=== PATIENT | female | born 1995 | race Caucasian/White ===

== ENCOUNTER 2018-10-22 19:13 | Emergency (ER) | payer MEDICAID ==
[~2018-10-22] VITALS: Ht 170.2 cm; Wt 56.1 kg
[2018-10-22 19:15] VITALS: BP 116/68
[2018-10-22] MEDS ORDERED: DIPH,PERTUSS(ACELL),TET VAC/PF 0.5 ML IM-VACC ONE (19:30)
--- NOTE | 2018-10-22 19:33 | NUR ---
TDAP ADMIN. PATIENT INITALLY REFUSED X-RAY BECAUSE SHE IS CONCERNED ABOUT COST
== END 2018-10-22 21:34 | disposition home or self-care (01) ==
LOC: ED 20:05
DX: S91.331A Puncture wound without foreign body, right foot, initial encounter (principal); S91.332A Puncture wound without foreign body, left foot, initial encounter; W22.8XXA Striking against or struck by other objects, initial encounter; Y93.89 Activity, other specified; Y92.89 Other specified places as the place of occurrence of the external cause; Y99.8 Other external cause status
CPT/HCPCS: 90471; 90715

== ENCOUNTER 2018-12-01 17:45 | Emergency (ER) | payer MEDICAID ==
[~2018-12-01] VITALS: Ht 170.2 cm; Wt 58.0 kg
[2018-12-01] MEDS ORDERED: ONDANSETRON 2MG/ML, 2ML IVPush PRN (18:00)
[2018-12-01] MEDS ORDERED: MORPHINE SULFATE 4 MG/ML, 1ML IVPush ONE (18:00)
[2018-12-01] MEDS ORDERED: ONDANSETRON ODT 4 MG ONE (18:40)
[2018-12-01] MEDS ORDERED: MORPHINE SULFATE 4 MG/ML, 1ML ONE (18:40)
--- NOTE | 2018-12-01 18:47 | NUR ---
PT BACK FROM XRAY, REFUSES IV. ERP NOTIFIED, MORPHINE GIVEN IM AND ZOFRAN ODT. BOYFRIEND AT , CALL LIGHT WITHIN REACH.
[2018-12-01] MEDS ORDERED: LIDOCAINE 1%-EPI 1:100K, 20ML ONE (19:24)
[2018-12-01] MEDS ORDERED: DIPH,PERTUSS(ACELL),TET VAC/PF 0.5 ML IM-VACC ONE (19:30)
[2018-12-01] MEDS ORDERED: LIDOCAINE 1%-EPI 1:100K, 20ML SQ ONE (19:30)
--- NOTE | 2018-12-01 19:35 | NUR ---
PER PT AND BOYFRIEND, EPISODE OF SYNCOPE. PT A/O TO NORM SINCE ARRIVAL TO ED. PT'S BEHAVIOR CONTINUES TO BE INNAPPROPRIATE AND ERRATIC WITH EPISODES OF CRYING AND YELLING OUT.
[2018-12-01 19:40] VITALS: BP 134/77
--- NOTE | 2018-12-01 19:40 | NUR ---
" I SMOKED SOME METH TONIGHT, I DID'T MEAN TOO, IT WAS JUST THERE AND I HAVE BEEN CLEAN ". PT FULLY MONITORED. VS Q 15 M. BP 131/77 HR 94 SINUS.
[2018-12-01] MEDS ORDERED: NEOSPORIN OINT. PKT 1 PACKET ONE ×2 (20:01→20:32)
== END 2018-12-01 21:20 | disposition home or self-care (01) ==
LOC: ED 19:21
DX: S82.52XA Displaced fracture of medial malleolus of left tibia, initial encounter for closed fracture (principal); S50.311A Abrasion of right elbow, initial encounter; S50.312A Abrasion of left elbow, initial encounter; S60.511A Abrasion of right hand, initial encounter; S60.512A Abrasion of left hand, initial encounter; S80.211A Abrasion, right knee, initial encounter; S80.212A Abrasion, left knee, initial encounter; Z72.9 Problem related to lifestyle, unspecified; F17.200 Nicotine dependence, unspecified, uncomplicated; F15.10 Other stimulant abuse, uncomplicated; V00.131A Fall from skateboard, initial encounter; Y93.89 Activity, other specified; Y92.410 Unspecified street and highway as the place of occurrence of the external cause; Y99.8 Other external cause status
CPT/HCPCS: 12031; 29125; 73070; 73110; 73130; 73564; 73610; 93005; 96374; 96375; 99284; J2270; J2405; 96372; 99283

== ENCOUNTER 2018-12-02 04:28 | Emergency (ER) | payer MEDICAID ==
[~2018-12-02] VITALS: Ht 170.2 cm; Wt 52.0 kg
[2018-12-02 04:29] VITALS: BP 94/66
[2018-12-02] MEDS ORDERED: OXYcodone/APAP 5/325MG TABLET ONE (04:57)
[2018-12-02] MEDS ORDERED: OXYcodone/APAP 5/325MG TABLET PO ONE (05:00)
[2018-12-02] MEDS ORDERED: LORazepam 1MG TABLET ONE (05:15)
[2018-12-02] MEDS ORDERED: LORazepam 1MG TABLET PO ONE (05:30)
== END 2018-12-02 05:49 | disposition home or self-care (01) ==
LOC: ED 04:57
DX: S82.54XA Nondisplaced fracture of medial malleolus of right tibia, initial encounter for closed fracture (principal); Z72.9 Problem related to lifestyle, unspecified; W18.30XA Fall on same level, unspecified, initial encounter; Y93.89 Activity, other specified; Y92.89 Other specified places as the place of occurrence of the external cause; Y99.8 Other external cause status
CPT/HCPCS: 29515; 99283

== ENCOUNTER 2019-10-18 15:49 | Emergency (ER) | payer MEDICAID ==
[~2019-10-18] VITALS: Ht 172.7 cm; Wt 51.5 kg
[2019-10-18 16:06] VITALS: BP 118/58
--- NOTE | 2019-10-18 16:12 | NUR ---
PIE FILLER: PT PROVIDED W/ URINE CUP FOR SAMPLE.
--- NOTE | 2019-10-18 16:17 | NUR ---
MECHANICAL ARTIST: PT TO RAD.
[2019-10-18 17:08] LABS: MICROSCOPIC AUTO
--- NOTE | 2019-10-18 17:20 | NUR ---
CALLED FOR PT. PT NOT IN LOBBY.
--- NOTE | 2019-10-18 18:15 | NUR ---
SATURATOR TENDER: CALLED FOR PT. PT NOT IN LOBBY AT THIS TIME.
--- NOTE | 2019-10-18 18:32 | NUR ---
CALLED FOR PT. PT NOT IN LOBBY. NOT IN RESTROOMS. PT DID NOT NOTIFY ANYONE PRIOR TO LEAVING.
== END 2019-10-18 18:34 | disposition left against medical advice (07) ==
LOC: ED 16:09
DX: S91.332A Puncture wound without foreign body, left foot, initial encounter (principal); R30.0 Dysuria; X58.XXXA Exposure to other specified factors, initial encounter; Y93.89 Activity, other specified; Y92.89 Other specified places as the place of occurrence of the external cause; Y99.8 Other external cause status
CPT/HCPCS: 81001; 87086; 99284

== ENCOUNTER 2020-04-06 20:56 | Emergency (ER) | payer MEDICAID ==
[~2020-04-06] VITALS: Ht 172.7 cm; Wt 53.9 kg
[2020-04-06 21:09] VITALS: BP 131/99
[2020-04-06] MEDS ORDERED: IBUPROFEN 600 MG TABLET ONE (21:37)
[2020-04-06] MEDS ORDERED: AMOXICILLIN 500 MG CAPSULE ONE (21:37)
[2020-04-06] MEDS ORDERED: AMOXICILLIN 500 MG CAPSULE PO ONE (22:00)
[2020-04-06] MEDS ORDERED: IBUPROFEN 200 MG TABLET PO ONE (22:00)
== END 2020-04-06 21:47 | disposition home or self-care (01) ==
LOC: ED 21:26
DX: H66.001 Acute suppurative otitis media without spontaneous rupture of ear drum, right ear (principal); H61.21 Impacted cerumen, right ear; Z90.89 Acquired absence of other organs
CPT/HCPCS: 69210; 99283; 99284

== ENCOUNTER 2020-04-21 22:12 | Emergency (ER) | payer MEDICAID ==
[~2020-04-21] VITALS: Ht 172.7 cm; Wt 53.5 kg
[2020-04-21 22:15] VITALS: BP 115/85
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
[2020-04-21] MEDS ORDERED: BICILLIN-LA 2,400,000 UNITS/4 ML IM ONE (23:00)
== END 2020-04-21 23:26 | disposition home or self-care (01) ==
LOC: ED 23:00
DX: Z20.2 Contact with and (suspected) exposure to infections with a predominantly sexual mode of transmission (principal); Z90.89 Acquired absence of other organs
CPT/HCPCS: 96372; 99283; J0561

== ENCOUNTER 2020-06-28 02:08 | Emergency (ER) | payer MEDICAID ==
[~2020-06-28] VITALS: Ht 172.7 cm; Wt 51.0 kg
[2020-06-28 02:19] VITALS: BP 137/94
== END 2020-06-28 03:00 | disposition home or self-care (01) ==
LOC: ED 02:52
DX: B86 Scabies (principal)
CPT/HCPCS: 99283